=== PATIENT | female | born 1985 | race Caucasian/White ===

== ENCOUNTER 2017-08-27 17:53 | Emergency (ER) | payer MEDICAID ==
[~2017-08-27] VITALS: Ht 149.9 cm; Wt 56.7 kg
[~2017-08-27 17:53] MED LIST: ALBU90OI INH; AMOX500 PO; AZIT250 PO; CYCL10 PO; HYDACE5 PO; HYDACE5325 PO; IBUP600 PO; LORA10ER PO; MULVITMINE PO; NAPR500 PO; NEOPOLHCSU OT; OXYACE5T PO; PROC10 PO; PROM25 PO; SULTRIDS PO
[2017-08-27] MEDS ORDERED: Zofran Odt8 MG SL (18:53)
[2017-08-27] MEDS ORDERED: Amoxicillin875 MG PO (18:53)
== END 2017-08-27 19:22 | disposition home or self-care (01) ==
LOC: ER 17:53
DX: K08.89 Other specified disorders of teeth and supporting structures (principal); F17.200 Nicotine dependence, unspecified, uncomplicated; Z88.5 Allergy status to narcotic agent; Z88.1 Allergy status to other antibiotic agents
CPT/HCPCS: 99283

== ENCOUNTER 2018-07-03 09:42 | Emergency (ER) | payer OTHER ==
[~2018-07-03] VITALS: Ht 149.9 cm; Wt 54.4 kg
[~2018-07-03 09:42] MED LIST changes: +Amoxicillin875 MG PO; +Zofran Odt8 MG SL
[2018-07-03] MEDS ORDERED: ERYT1OIN RIGHTEYE (11:40)
== END 2018-07-03 11:52 | disposition home or self-care (01) ==
LOC: ER 09:42
DX: S05.01XA Injury of conjunctiva and corneal abrasion without foreign body, right eye, initial encounter (principal); F17.210 Nicotine dependence, cigarettes, uncomplicated; Z88.5 Allergy status to narcotic agent; X58.XXXA Exposure to other specified factors, initial encounter
CPT/HCPCS: 99283

== ENCOUNTER 2018-07-12 22:44 | Emergency (ER) | payer OTHER ==
[~2018-07-12] VITALS: Ht 149.9 cm; Wt 54.4 kg
[~2018-07-12 22:44] MED LIST changes: +ERYT1OIN RIGHTEYE
[2018-07-13] MEDS ORDERED: Bactrim Ds Tab1 EACH PO (00:57)
[2018-07-13] MEDS ORDERED: Roxicodone5 MG PO (00:57)
== END 2018-07-13 01:16 | disposition home or self-care (01) ==
LOC: ER 22:44
DX: L03.031 Cellulitis of right toe (principal); L02.611 Cutaneous abscess of right foot; J45.909 Unspecified asthma, uncomplicated; G43.909 Migraine, unspecified, not intractable, without status migrainosus; F17.210 Nicotine dependence, cigarettes, uncomplicated; Z88.5 Allergy status to narcotic agent; Z88.1 Allergy status to other antibiotic agents; Z87.442 Personal history of urinary calculi
CPT/HCPCS: 73630; 90714; A9270-GY

== ENCOUNTER 2018-07-15 19:59 | Emergency (ER) | payer OTHER ==
[~2018-07-15] VITALS: Ht 149.9 cm; Wt 54.4 kg
[~2018-07-15 19:59] MED LIST changes: +Bactrim Ds Tab1 EACH PO; +Roxicodone5 MG PO
[2018-07-15] MEDS ORDERED: CEPH500 PO (22:35)
== END 2018-07-15 22:42 | disposition home or self-care (01) ==
LOC: ER 19:59
DX: L02.611 Cutaneous abscess of right foot (principal); L03.115 Cellulitis of right lower limb; Z88.5 Allergy status to narcotic agent; Z88.1 Allergy status to other antibiotic agents; Z79.899 Other long term (current) drug therapy; D64.9 Anemia, unspecified; F17.210 Nicotine dependence, cigarettes, uncomplicated
CPT/HCPCS: 87070; 87075; 87077; 87186; 87205; 96365; 99282-25

== ENCOUNTER 2019-02-26 01:57 | Emergency (ER) | payer OTHER ==
[~2019-02-26] VITALS: Ht 149.9 cm; Wt 54.4 kg
[~2019-02-26 01:57] MED LIST changes: +CEPH500 PO
[2019-02-26 03:49] LABS: BASOPHILS ABSOLUTE AUTO 0.05 K/mm3 (0.00-0.23); BASOPHILS PERCENT AUTO 1 % (0-2); EOSINOPHILS ABSOLUTE AUTO 0.22 K/mm3 (0.00-0.68); EOSINOPHILS PERCENT AUTO 3 % (0-6); Hematocrit 40.6 % (33.0-51.0); Hemoglobin 13.4 g/dL (11.5-16.0); IMMATURE GRAN ABSOLUTE AUTO 0.02 K/mm3 (0.00-0.10); IMMATURE GRAN PERCENT AUTO 0 % (0-1); LYMPHOCYTES ABSOLUTE AUTO 3.05 K/mm3 (0.84-5.20); LYMPHOCYTES PERCENT AUTO 36 % (21-46); MONOCYTES ABSOLUTE AUTO 0.67 K/mm3 (0.16-1.47); MONOCYTES PERCENT AUTO 8 % (4-13); Mean Corpuscular Volume 97 fL (80-100); Mean Platelet Volume 10.2 fL (9.1-12.4); NEUTROPHILS ABSOLUTE AUTO 4.58 K/mm3 (1.96-9.15); NEUTROPHILS PERCENT AUTO 53 % (41-73); Platelet Count 311 K/mm3 (150-400); RDW Coefficient Variation 12.7 % (11.7-14.2); Red Blood Cell Count 4.19 M/mm3 (3.80-5.20); White Blood Cell Count 8.59 K/mm3 (4.00-11.30)
[2019-02-26 04:08] LABS: Alanine Aminotransfer (ALT/SGP 21 U/L (12-78); Albumin, Blood 3.9 g/dL (3.4-5.0); Albumin/Globulin Ratio 1.3 (0.8-1.8); Alk Phos 58 U/L (50-136); Anion Gap 5 mmol/L (6-16); Aspartate Aminotrans (AST/SGOT 15 U/L (12-37); Bilirubin, Total 0.4 mg/dL (0.1-1.0); Blood Urea Nitrogen 9 mg/dL (8-24); Bun/Creatinine Ratio 14.5 (12.0-20.0); CO2, Blood 26 mmol/L (21-32); Calcium, Blood 8.6 mg/dL (8.5-10.1); Chloride, Blood 109 mmol/L (98-108); Creatinine, Blood 0.62 mg/dL (0.40-1.00); Globulin, Blood 3.1 g/dL (2.2-4.0); Glomerular Filtration Rate >60 (60-); Glucose, Blood 87 mg/dL (70-99); Potassium, Blood 3.8 mmol/L (3.5-5.5); Sodium, Blood 140 mmol/L (136-145)
[2019-02-26] MEDS ORDERED: Cleocin HCl300 MG PO (05:04)
== END 2019-02-26 05:16 | disposition home or self-care (01) ==
LOC: ER 01:57
PROVIDERS: Emergency Medicine
DX: L03.031 Cellulitis of right toe (principal); G43.909 Migraine, unspecified, not intractable, without status migrainosus; F17.210 Nicotine dependence, cigarettes, uncomplicated; Z88.5 Allergy status to narcotic agent
CPT/HCPCS: 36415; 73620; 80053; 83605; 85025; 87040; 96365; 96375; 99283-25; J2405; J3010; J7030

== ENCOUNTER 2020-08-18 21:48 | Emergency (ER) | payer OTHER ==
[~2020-08-18 21:48] MED LIST changes: +Cleocin HCl300 MG PO
[2020-08-19] MEDS ORDERED: AMOCLA875 PO (13:00)
[2020-08-19] MEDS ORDERED: IBUP600 PO (13:00)
== END 2020-08-18 23:56 | disposition left against medical advice (07) ==
LOC: ER 21:48
DX: Z53.21 Procedure and treatment not carried out due to patient leaving prior to being seen by health care provider (principal)

== ENCOUNTER 2020-08-19 11:26 | Emergency (ER) | payer OTHER ==
[~2020-08-19] VITALS: Ht 149.9 cm; Wt 56.7 kg
[2020-08-19] MEDS ORDERED: IBUP600 PO (13:00)
[2020-08-19] MEDS ORDERED: AMOCLA875 PO (13:00)
== END 2020-08-19 13:32 | disposition home or self-care (01) ==
LOC: ER 11:26
DX: K04.7 Periapical abscess without sinus (principal); F17.210 Nicotine dependence, cigarettes, uncomplicated; Z88.5 Allergy status to narcotic agent
CPT/HCPCS: 96372; 99282-25; A9270; J1885

== ENCOUNTER 2021-09-23 03:40 | Emergency (ER) | payer OTHER ==
[~2021-09-23] VITALS: Ht 149.9 cm; Wt 56.7 kg
[~2021-09-23 03:40] MED LIST changes: +AMOCLA875 PO
[2021-09-23] MEDS ORDERED: AMOCLA875 PO ×2 (06:46→06:47)
[2021-09-23] MEDS ORDERED: OXYC5 PO ×2 (06:46→06:47)
== END 2021-09-23 07:01 | disposition home or self-care (01) ==
LOC: ER 03:40
DX: S41.152A Open bite of left upper arm, initial encounter (principal); S71.151A Open bite, right thigh, initial encounter; S31.825A Open bite of left buttock, initial encounter; S21.052A Open bite of left breast, initial encounter; F17.210 Nicotine dependence, cigarettes, uncomplicated; W54.0XXA Bitten by dog, initial encounter; Z88.5 Allergy status to narcotic agent; Z88.8 Allergy status to other drugs, medicaments and biological substances
CPT/HCPCS: 90714; A9270

== ENCOUNTER 2023-04-12 17:13 | Emergency (ER) | payer OTHER ==
[~2023-04-12] VITALS: Ht 149.9 cm; Wt 54.4 kg
[~2023-04-12 17:13] MED LIST changes: +OXYC5 PO
[2023-04-12 17:38] VITALS: BP 123/95
== END 2023-04-12 18:57 | disposition left against medical advice (07) ==
LOC: ER 17:13
DX: Z53.21 Procedure and treatment not carried out due to patient leaving prior to being seen by health care provider (principal)
CPT/HCPCS: 99281; A9270

== ENCOUNTER 2024-02-20 20:53 | Emergency (ER) | payer OTHER ==
[~2024-02-20] VITALS: Ht 149.9 cm; Wt 56.7 kg
[2024-02-20 20:56] VITALS: BP 159/102
[2024-02-20] MEDS ORDERED: Amoxicillin875 MG PO (21:08)
[2024-02-20] MEDS ORDERED: Amoxicillin 875 MG Tab PO ONE (21:10)
== END 2024-02-20 21:35 | disposition home or self-care (01) ==
LOC: ER 20:53
DX: K04.7 Periapical abscess without sinus (principal); G43.909 Migraine, unspecified, not intractable, without status migrainosus; F17.210 Nicotine dependence, cigarettes, uncomplicated; Z79.899 Other long term (current) drug therapy; Z91.018 Allergy to other foods; Z88.5 Allergy status to narcotic agent; Z88.1 Allergy status to other antibiotic agents
CPT/HCPCS: 64400; 99282-25; A9270

== ENCOUNTER 2024-08-18 14:49 | Emergency (ER) | payer OTHER ==
[~2024-08-18] VITALS: Ht 149.9 cm; Wt 56.7 kg
[2024-08-18 14:54] VITALS: BP 122/97
[2024-08-18] MEDS ORDERED: Tetanus,Diphtheria Toxd Ped/Pf 0.5 ML VIAL IM ONE (15:00)
[2024-08-18] MEDS ORDERED: Ibuprofen 600 MG Tab PO ONE (15:00)
[2024-08-18] MEDS ORDERED: Diphth,Pertuss(Acell),Tet Vac 0.5 ML VIAL IM ONE (15:05)
[2024-08-18] MEDS ORDERED: HYDROCODONE-AC1 EA10 PO (15:24)
[2024-08-18] MEDS ORDERED: IBUP600 PO (15:24)
[2024-08-18] MEDS ORDERED: HYDROcodone 5-APAP 325 TAB PO ONE (15:25)
== END 2024-08-18 15:51 | disposition home or self-care (01) ==
LOC: ER 14:49
DX: S62.626A Displaced fracture of middle phalanx of right little finger, initial encounter for closed fracture (principal); G43.909 Migraine, unspecified, not intractable, without status migrainosus; F17.210 Nicotine dependence, cigarettes, uncomplicated; Z88.5 Allergy status to narcotic agent; Z88.1 Allergy status to other antibiotic agents; Z91.018 Allergy to other foods; W23.0XXA Caught, crushed, jammed, or pinched between moving objects, initial encounter
CPT/HCPCS: 73120; 90471; 90702; 90715; 99283-25; A9270

== ENCOUNTER 2025-01-26 18:48 | Emergency (ER) | payer OTHER ==
[~2025-01-26] VITALS: Ht 149.9 cm; Wt 54.4 kg
[~2025-01-26 18:48] MED LIST changes: +HYDROCODONE-AC1 EA10 PO
[2025-01-26 18:57] VITALS: BP 120/57
[2025-01-26] MEDS ORDERED: HYDROcodone 5-APAP 325 TAB PO ONE (19:10)
[2025-01-26] MEDS ORDERED: AMOX500 PO (19:14)
[2025-01-26] MEDS ORDERED: HYDR1TAB94 PO (19:14)
== END 2025-01-26 19:21 | disposition home or self-care (01) ==
LOC: ER 18:48
DX: K04.7 Periapical abscess without sinus (principal); F17.210 Nicotine dependence, cigarettes, uncomplicated; Z88.5 Allergy status to narcotic agent; Z88.1 Allergy status to other antibiotic agents; Z91.018 Allergy to other foods; Z79.899 Other long term (current) drug therapy
CPT/HCPCS: 99282; A9270